=== PATIENT | male | born 1965 | race Caucasian/White ===

== ENCOUNTER 2020-10-08 09:28 | Emergency (ER) | payer OTHER ==
[~2020-10-08] VITALS: Ht 172.7 cm; Wt 90.7 kg
[2020-10-08 10:30] LABS: Basophils # (auto) 0 10 ^3/uL (0-0.2); Basophils % (auto) 0.6 % (0.0-2.0); Eosinophils # (auto) 0.1 10 ^3/uL (0-0.8); Eosinophils % (auto) 1.7 % (0.0-7.0); Hematocrit 43.6 % (41.0-53.0); Hemoglobin 15.2 g/dL (13.5-17.5); Lymphocytes # (auto) 2.6 10 ^3/uL (0.4-5.4); Lymphocytes % (auto) 37.2 % (10.0-50.0); Mean Corpuscular Hgb Conc. 34.8 g/dL (32.0-36.0); Mean Corpuscular Volume 86.2 fL (80.0-100.0); Monocytes # (auto) 0.6 10 ^3/uL (0-1.3); Monocytes % (auto) 8.6 % (0.0-12.0); Neutrophils # (auto) 3.6 10 ^3/uL (1.6-8.6); Neutrophils % (auto) 51.9 % (37.0-80.0); Nucleated Red Blood Cells % 0.3 %; Platelet Count (auto) 308 10^3/uL (140-450); Red Blood Cells 5.06 10^6/uL (4.5-5.90); Red Cell Distribution Width 14.7 % (11.8-14.3)
[2020-10-08 10:42] LABS: Albumin 3.9 g/dL (3.4-5.0); Anion Gap 5 (5-15); Blood Urea Nitrogen 10 mg/dL (7-18); Calcium 9.1 mg/dL (8.5-10.1); Carbon Dioxide 26 mmol/L (21-32); Chloride 108 mmol/L (98-107); Glucose 83 mg/dL (74-106); Potassium 4.3 mmol/L (3.5-5.1); Sodium 139 mmol/L (136-145)
[2020-10-08 10:47] LABS: Alanine Aminotransferase 24 U/L (16-61); Alkaline Phosphatase 58 U/L (45-117); Aspartate Aminotransferase 24 U/L (15-37); BUN/Creatinine Ratio 10.4; Bilirubin, Total 0.5 mg/dL (0.2-1.0); GFR African American 104 mL/min; GFR Non-African American 86 mL/min; Total Protein 7.9 g/dL (6.4-8.2)
[2020-10-08] MEDS ORDERED: LABETALOL HCL 5 MG/ML 4ML SYRINGE IV ONE (11:30)
[2020-10-08] MEDS ORDERED: SODIUM CHLORIDE 0.9% 1,000 ML IV ONE (11:30)
[2020-10-08 13:44] LABS: Urine Bacteria NONE SEEN /hpf (None Seen); Urine Blood 1+ /uL (Negative); Urine Hyaline Cast FEW /lpf (0 - 2); Urine Mucus FEW (None Seen); Urine WBC <1 /hpf (0 - 3)
[2020-10-08] MEDS ORDERED: ACETAMINOPHEN 325 MG TAB PO ONE (14:00)
[2020-10-08 15:00] VITALS: BP 138/85
== END 2020-10-08 15:39 | disposition home or self-care (01) ==
LOC: EDBD 09:28 → EEVIPCON 09:28 → ER 09:28
DX: I11.0 Hypertensive heart disease with heart failure (principal); I50.9 Heart failure, unspecified; R07.9 Chest pain, unspecified; R51.9 Headache, unspecified; J44.9 Chronic obstructive pulmonary disease, unspecified; F17.210 Nicotine dependence, cigarettes, uncomplicated; R31.9 Hematuria, unspecified; Z88.6 Allergy status to analgesic agent
CPT/HCPCS: 36415; 71045; 74176; 80053; 81001; 83735; 84484; 85025; 93005; 96361; 96374; 99285; J3490; J7030

== ENCOUNTER 2021-04-12 11:05 | Inpatient (IN) | payer OTHER ==
[~2021-04-12] VITALS: Ht 172.7 cm; Wt 91.5 kg
[2021-04-12] MEDS ORDERED: cloNIDine HCL 0.1 MG TAB PO ONE (11:15)
[2021-04-12 12:11] LABS: Albumin 3.9 g/dL (3.4-5.0); Anion Gap 5 (5-15); Blood Urea Nitrogen 16 mg/dL (7-18); Carbon Dioxide 24 mmol/L (21-32); Chloride 109 mmol/L (98-107); Glucose 86 mg/dL (74-106); Magnesium 2.2 mg/dL (1.6-2.6); Potassium 4.1 mmol/L (3.5-5.1); Sodium 138 mmol/L (136-145)
[2021-04-12 12:15] LABS: Basophils # (auto) 0.1 10 ^3/uL (0-0.2); Basophils % (auto) 1.1 % (0.0-2.0); Eosinophils # (auto) 0.1 10 ^3/uL (0-0.8); Eosinophils % (auto) 1.3 % (0.0-7.0); Hematocrit 40.8 % (41.0-53.0); Hemoglobin 14.6 g/dL (13.5-17.5); Lymphocytes # (auto) 1.7 10 ^3/uL (0.4-5.4); Lymphocytes % (auto) 39.4 % (10.0-50.0); Mean Corpuscular Hemoglobin 30.8 pg (28.0-32.0); Mean Corpuscular Hgb Conc. 35.7 g/dL (32.0-36.0); Mean Corpuscular Volume 86.3 fL (80.0-100.0); Monocytes # (auto) 0.4 10 ^3/uL (0-1.3); Monocytes % (auto) 9.6 % (0.0-12.0); Neutrophils # (auto) 2.1 10 ^3/uL (1.6-8.6); Neutrophils % (auto) 48.6 % (37.0-80.0); Red Blood Cells 4.73 10^6/uL (4.5-5.90); Red Cell Distribution Width 13.5 % (11.8-14.3); White Blood Cell 4.4 10^3/uL (4.4-10.8)
[2021-04-12 12:17] LABS: Alanine Aminotransferase 17 U/L (16-61); Alkaline Phosphatase 61 U/L (45-117); Aspartate Aminotransferase 17 U/L (15-37); BUN/Creatinine Ratio 18.4; Bilirubin, Total 0.5 mg/dL (0.2-1.0); GFR African American 117 mL/min; GFR Non-African American 96 mL/min; Total Protein 7.7 g/dL (6.4-8.2)
[2021-04-12 12:19] LABS: Nucleated Red Blood Cells % 0.1 %
[2021-04-12] MEDS ORDERED: NITROGLYCERIN 0.4 MG SL TAB SL PRN (16:00)
[2021-04-12] MEDS ORDERED: MORPHINE SULFATE INJECTION 2 MG/ML SYRG IV PRN (16:00)
[2021-04-12 22:25] LABS: Urine Bacteria NONE SEEN /hpf (None Seen); Urine Blood TRACE /uL (Negative); Urine Mucus FEW (None Seen); Urine Specific Gravity 1.021 (1.001-1.035); Urine WBC 1 /hpf (0 - 3)
[2021-04-12] MEDS: METOPROLOL TARTRATE 25 MG TAB PO SCH (22:29)
[2021-04-13 02:57] VITALS: BP 130/66
[2021-04-13 09:00] VITALS: BP 130/73
[2021-04-13] MEDS: ASPirin 81 mg TAB PO SCH (09:39)
[2021-04-13] MEDS: METOPROLOL TARTRATE 25 MG TAB PO SCH ×2 (09:39→21:06)
[2021-04-13] MEDS ORDERED: ADENOSINE 76 MG in GIVE UN-DILUTED 0 ML IV STA (11:20)
[2021-04-13] MEDS: PANTOPRAZOLE 40 MG/10 ML VIAL INJ IV SCH ×2 (12:00→21:05)
[2021-04-13 13:00] VITALS: BP 184/103
[2021-04-13] MEDS: HYDROmorphone HCL 2 MG/ML VL IV PRN ×2 (13:08→21:05)
[2021-04-13] MEDS: hydrALAZINE HCL 20 MG/ML VL IV PRN ×2 (13:09→17:29)
[2021-04-13] MEDS ORDERED: GOLYTELY 4L KIT PO ONE (14:00)
[2021-04-13] MEDS ORDERED: ONDANSETRON HCL 4 MG/2 ML VIAL IV PRN (16:45)
[2021-04-13 17:00] VITALS: BP 182/116
[2021-04-13] MEDS ORDERED: hydrALAZINE HCL 20 MG/ML VL IV ONE (18:15)
[2021-04-13] MEDS: HYDROcodone-ACET 5/325MG TAB PO PRN (19:25)
[2021-04-13 20:32] VITALS: BP 123/82
[2021-04-13] MEDS: NIFEdipine ER 30 MG TAB PO SCH (21:06)
[2021-04-13 22:00] VITALS: BP 119/73
[2021-04-14 05:00] VITALS: BP 107/76
[2021-04-14] MEDS: HYDROmorphone HCL 2 MG/ML VL IV PRN ×2 (05:58→13:00)
[2021-04-14] MEDS: ASPirin 81 mg TAB PO SCH (08:48)
[2021-04-14] MEDS: PANTOPRAZOLE 40 MG/10 ML VIAL INJ IV SCH ×2 (08:48→22:50)
[2021-04-14] MEDS: METOPROLOL TARTRATE 25 MG TAB PO SCH ×2 (08:49→22:54)
[2021-04-14] MEDS: NIFEdipine ER 30 MG TAB PO SCH ×2 (08:50→22:00)
[2021-04-14 09:00] VITALS: BP 127/87
[2021-04-14 13:00] VITALS: BP 129/79
[2021-04-14 14:46] LABS: INR 1.16 (0.9-1.15); Partial Thromboplastin Time 24.4 sec (23.6-33.0)
[2021-04-14] MEDS ORDERED: fentaNYL CITRATE 100 MCG/2 ML VL ONE (17:49)
[2021-04-14] MEDS ORDERED: MIDAZOLAM HCL 2MG/2ML 2ml VIAL (1mg/ml) ONE (17:50)
[2021-04-14] MEDS ORDERED: ONDANSETRON HCL 4 MG/2 ML VIAL IV PRN (18:30)
[2021-04-14] MEDS: HYDROcodone-ACET 5/325MG TAB PO PRN (19:54)
[2021-04-14 22:00] VITALS: BP 110/54
[2021-04-14] MEDS: SUCRALFATE 1 GM/10 ML ORAL SUSP PO SCH (22:50)
[2021-04-15 05:00] VITALS: BP 107/61
[2021-04-15] MEDS: SUCRALFATE 1 GM/10 ML ORAL SUSP PO SCH (07:01)
[2021-04-15 09:04] VITALS: BP 97/58
[2021-04-15] MEDS: NIFEdipine ER 30 MG TAB PO SCH (10:00)
[2021-04-15] MEDS: PANTOPRAZOLE 40 MG/10 ML VIAL INJ IV SCH (10:00)
[2021-04-15] MEDS: METOPROLOL TARTRATE 25 MG TAB PO SCH (10:00)
[2021-04-15] MEDS: ASPirin 81 mg TAB PO SCH (10:00)
== END 2021-04-15 13:20 | DRG 305 ==
LOC: EEVIPCON 11:05 → ER 11:05 → TELE 15:58 → TELE-WESTW 04-13 02:04
PROVIDERS: ADMIT Specialist; ATTEND Specialist
PROC: 0DB68ZX Excision of Stomach, Via Natural or Artificial Opening Endoscopic, Diagnostic (ICD-10-PCS; 2021-04-14)
PROC: 0DB48ZX Excision of Esophagogastric Junction, Via Natural or Artificial Opening Endoscopic, Diagnostic (ICD-10-PCS; 2021-04-14)
PROC: 0DB98ZX Excision of Duodenum, Via Natural or Artificial Opening Endoscopic, Diagnostic (ICD-10-PCS; principal; 2021-04-14 17:51)
DX: I16.9 Hypertensive crisis, unspecified (principal); I67.4 Hypertensive encephalopathy; G44.229 Chronic tension-type headache, not intractable; J44.9 Chronic obstructive pulmonary disease, unspecified; I50.9 Heart failure, unspecified; I11.0 Hypertensive heart disease with heart failure; F41.9 Anxiety disorder, unspecified; Z20.822 Contact with and (suspected) exposure to COVID-19; F17.210 Nicotine dependence, cigarettes, uncomplicated; K29.70 Gastritis, unspecified, without bleeding; Z82.49 Family history of ischemic heart disease and other diseases of the circulatory system; Z88.8 Allergy status to other drugs, medicaments and biological substances; K25.9 Gastric ulcer, unspecified as acute or chronic, without hemorrhage or perforation; K44.9 Diaphragmatic hernia without obstruction or gangrene; K20.80 Other esophagitis without bleeding
CPT/HCPCS: 36415; 70450; 71045; 78452; 80053; 81001; 83735; 84484; 85025; 85610; 85730; 87081; 87426; 93005; 93017; 93306; C9113; G0378; J0153; J2250; J2405

== ENCOUNTER → 2022-03-29 | Outpatient (CLI) | payer OTHER | END | disposition home or self-care (01) | LOC: LAB 12:19 | PROVIDERS: ATTEND Urology | DX: R31.9 Hematuria, unspecified (principal); R80.9 Proteinuria, unspecified ==